=== PATIENT | female | born 1975 | race Caucasian/White ===

== ENCOUNTER 2018-10-18 12:03 | Emergency (ER) | payer MEDICAID ==
[~2018-10-18] VITALS: Ht 162.6 cm; Wt 68.2 kg
[2018-10-18 12:13] VITALS: RESP 18; Ht 162.6 cm; Wt 68.2 kg
[2018-10-18] MEDS ORDERED: HYDROCODONE/APAP (5/325) TAB PO ONE (13:00)
--- NOTE | 2018-10-18 13:02 | ERD ---
ER Documentation Chief Complaint Chief Complaint left knee and ankle pain s/p slip & fall HPI This is an otherwise healthy 42-year-old female presenting to the emergency department complaining of left ankle and left foot pain after fall which occurred yesterday. Patient states the ground was slippery causing her to invert her left ankle. Pain is constant, worse with walking, rated 10/10 in severity. She took Advil at home with some relief. She denies any head injury, loss of consciousness, or other symptoms or injuries at this time. ROS All systems reviewed and are negative except as per history of present illness. Medications Home Meds Active Scripts Hydrocodone/Acetaminophen ([place] 5-325 Tablet) 1 Each Tablet, 1 TAB PO Q6H PRN for PAIN, #7 TAB Prov:OLU RETANA PA-C 10/18/18 Ibuprofen* (Motrin*) 600 Mg Tab, 600 MG PO Q6, #30 TAB Prov:OLU RETANA PA-C 10/18/18 Allergies Allergies: Coded Allergies: No Known Allergy (Unverified , 10/18/18) PMhx/Soc Medical and Surgical Hx: pt denies Medical Hx FmHx Family History: No diabetes Physical Exam Vitals Vital Signs Date Temp Pulse Resp B/P (MAP) Pulse Ox O2 O2 Flow FiO2 Time Delivery Rate 10/18/18 76 122/65 15:09 (84) 10/18/18 98.3 78 18 120/65 97 12:13 (83) Physical Exam Const: No acute distress Head: Atraumatic Eyes: Normal Conjunctiva ENT: Normal External Ears, Nose and Mouth. Neck: Full range of motion. No meningismus. Resp: No respiratory distress. Skin: No petechiae or rashes Back: No midline or flank tenderness Ext: Edema with associated tenderness to palpation of the left lateral malleolus. Tenderness palpation of the fifth and fourth metatarsal region of the left foot. Patient is neurovascularly intact distally. No obvious deformity or open fracture. 2+ pedal pulses to the left lower extremity. Neur: Awake and alert Psych: Normal Mood and Affect Results 24 hrs Current Medications Medications Dose Sig/[place] Start Time Status Last (Trade) Ordered Route PRN Stop Time Admin Dose Reason Admin 1 tab ONCE ONCE 10/18/18 DC 10/18/18 Acetaminophen PO 13:00 13:10 / 10/18/18 13:01 Hydrocodone Bitart ([place] (5/081)) [place] [address] Radiology Main Line: [phone] DIAGNOSTIC IMAGING REPORT Patient: NAHED ALEXANDER : 1975 Age: 42 Sex: F MR #: [id number] DOS: 10/18/18 0000 Ordering MD: OLU RETANA PA-C Location: [facility] Room/Bed: PROCEDURE: XR Ankle. CLINICAL INDICATION: Fall. Pain TECHNIQUE: Three views of the left ankle were performed. COMPARISON: None. FINDINGS: There is an acute, comminuted and minimally displaced distal fibular fracture. The remaining osseous structures are intact. The distal tibia appears intact. The tibiotalar joint is preserved. Bone mineral density is preserved. The articular surfaces are smooth without evidence of marginal erosions. Lateral soft tissue swelling IMPRESSION: 1. Acute, comminuted, minimally displaced distal fibular/lateral malleolar fracture. RPTAT: UU .Abdirashid Gold MD, MD Date Time Electronically viewed and signed by .Abdirashid Gold MD, MD on 10/18/2018 14:00 .d/ CC: OLU RETANA PA-C [id number] [place] [address] Radiology Main Line: [phone] DIAGNOSTIC IMAGING REPORT Patient: NAHED ALEXANDER : 1975 Age: 42 Sex: F MR #: [id number] DOS: 10/18/18 0000 Ordering MD: OLU RETANA PA-C Location: [facility] Room/Bed: PROCEDURE: XR Foot. CLINICAL INDICATION: Left foot pain TECHNIQUE: Three views of the left foot are available for review. COMPARISON: None available FINDINGS: There is an acute, comminuted and minimally displaced distal fibular fracture. The remaining osseous structures are intact. The distal tibia appears intact. The tibiotalar joint is preserved. Bone mineral density is preserved. The articular surfaces are smooth without evidence of marginal erosions. Lateral soft tissue swelling IMPRESSION: 1. Acute, comminuted, minimally displaced distal fibular/lateral malleolar fracture. RPTAT: UU .Abdirashid Gold MD, MD Date Time Electronically viewed and signed by .Abdirashid Gold MD, MD on 10/18/2018 14:00 .d/ CC: OLU RETANA PA-C [id number] Procedures/MDM 42-year-old female resenting to the emergency department complaining of left ankle and left foot pain after a fall which occurred yesterday. X-ray revealed a left malleolar fracture. Full report interpreted by the radiologist may be viewed above. Patient required splint for immobilization of fracture.Splint Assessment: Neurovascularly intact post splint placement with good fit. Patient's extremity symptoms have stabilized while they have been evaluated in the department and are appropriate for outpatient follow up. No evidence of compartment syndrome, neurologic injury, vascular injury, open joint, open fracture, tendon laceration, or foreign body. Patient was advised to follow-up with orthopedic physician within the next 24 to 48 hours. She agreed with the diagnosis, plan, need for follow-up, return precautions. No evidence of life-threatening pathology at time of discharge. Pt/family in agreement with discharge plan/diagnosis. Pt/family advised to return immediately with any new or worsening symptoms. Follow-up with primary care physician within the next 1-2 days. Disclaimer: Inadvertent spelling and grammatical errors are likely due to EHR/dictation software use and do not reflect on the overall quality of patient care. Also, please note that the electronic time recorded on this note does not necessarily reflect the actual time of the patient encounter. Departure Diagnosis: Primary Impression: Closed left ankle fracture Encounter type: initial encounter Qualified Codes: S82.892A - Other fracture of left lower leg, initial encounter for closed fracture Condition: Fair Patient Instructions: Treating Ankle Sprains Additional Instructions: Muchas jaylin por [facility] para bauer servicio. Esperamos que en bauer visita a la henry de emergencia bauer problema medico haya sido solucionado y que se sienta mucho mejor. Para estar seguros que bauer mejoria sigue en proceso, le pedimos el favor de hacer keysha nirmal de seguimiento medico con bauer doctor primario en los proximos 2-4 kuo. Lleve con usted estos documentos y las medicinas recetadas. Si selene sintomas empeoran, NO SE ESPERE, por favor regrese a henry de emergencia INMEDIATAMENTE. En bernarda que usted no tenga un mdico de atencin primaria: Llame al mdico o clnica comunitaria de referencia que aparece abajo harrison las horas de consultorio para hacer keysha nirmal para que le vean. CLINICAS: [facility] [phone] [facility] [phone] [facility] [phone] [facility] [phone] [place] [id number] [phone] [facility]. [phone] OLU ASHLEY PA-C October 18, 2018 13:02
[2018-10-18] MEDS ORDERED: HYDR-4011 PO (14:29)
[2018-10-18] MEDS ORDERED: IBUP-1542 PO (14:29)
[2018-10-18 15:09] VITALS: BP 122/65; PULSE 76
== END 2018-10-18 15:12 | disposition home or self-care (01) ==
LOC: FTE 12:03
DX: S82.892A Other fracture of left lower leg, initial encounter for closed fracture (principal); W01.0XXA Fall on same level from slipping, tripping and stumbling without subsequent striking against object, initial encounter; Y92.9 Unspecified place or not applicable
CPT/HCPCS: 29505; 73610; 73630; Z7502; Z7610